=== PATIENT | female | born 1995 | race Caucasian/White ===

== ENCOUNTER 2019-05-04 09:10 | Emergency (ER) | payer OTHER ==
[~2019-05-04] VITALS: Ht 167.6 cm; Wt 85.7 kg
--- NOTE | ~2019-05-04 | EKG ---
[place], [place] ELECTROCARDIOGRAM REPORT NAME: MURIEL GOMEZ UNIT #: [id number] ROOM: DOCTOR: EPIPHANY DRAFT REPORT BIRTHDATE: [birth year] [facility] Test Date: 2019-05-04 Test Time: 09:15:50 Pat Name: MURIEL GOMEZ Department: Room: Gender: F Instrument And Control Technician: : 1995 Requested By: YUDI BEEBE Order Number: [id number] Reading MD: Jose Guadalupe Rebolledo MD Measurements Intervals [place] Rate: 82 P: 44 ND: 127 QRS: 56 QRSD: 80 T: 29 QT: 372 QTc: 435 Interpretive Statements Sinus rhythm Nonspecific T abnormalities, anterior leads Electronically Signed On 05-05-2019 9:09:03 PDT by Jose Guadalupe Rebolledo MD CM:EKGRPT:ELECTROCARDIOGRAM REPORT YUDI BEEBE EPIPHANY DRAFT REPORT YUDI BEEBE
[2019-05-04 09:26] LABS: BASO % 0.4 % (0.0-1.0); EOS # 0.1 10*3/uL (0.0-0.4); EOS % 1.3 % (1.0-4.0); HEMATOCRIT 41.7 % (37.0-47.0); LYMPH # 2.2 10*3/uL (1.3-4.4); LYMPH % 19.8 % (27.0-41.0); MEAN CELL VOLUME 89.1 fl (81.0-99.0); MEAN CORPUSCULAR HGB 29.9 pg (27.0-31.0); MEAN CORPUSCULAR HGB CONC 33.6 g/dl (33.0-37.0); MEAN PLATELET VOLUME 10.3 fl (9.6-12.3); MONO % 9.2 % (3.0-9.0); NEUT # 7.7 10*3/uL (2.3-7.9); PLATELET COUNT AUTOMATED 242 10*3/uL (130-400); RED BLOOD COUNT 4.68 10*6/uL (4.10-5.10); WHITE BLOOD COUNT 11.1 10*3/uL (4.8-10.8)
[2019-05-04 09:43] LABS: ALBUMIN 3.9 gm/dl (3.1-4.5); ALKALINE PHOSPHATASE 67 U/L (45-117); BUN 10 mg/dl (7-24); CHLORIDE 109 mmol/L (98-107); CREATININE 1.37 mg/dL (0.55-1.02); LIPASE 52 U/L (73-393); POTASSIUM 3.8 mmol/L (3.5-5.1); SGOT/AST 12 IU/L (3-35); SGPT/ALT 24 U/L (12-78); SODIUM 140 mmol/L (136-145); TOTAL PROTEIN 8.1 gm/dL (6.4-8.2)
[2019-05-04 09:47] LABS: TROPONIN I < 0.015 ng/ml (<0.045)
[2019-05-04 10:32] LABS: BILIRUBIN NEGATIVE (NEGATIVE); BLOOD 2+ (NEGATIVE); CLARITY SL CLOUDY (CLEAR); COLOR YELLOW (YELLOW); GLUCOSE NEGATIVE (NEGATIVE); KETONE NEGATIVE (NEGATIVE); LEUKO ESTERASE NEGATIVE (NEGATIVE); NITRITE NEGATIVE (NEGATIVE); UROBILINOGEN 0.2 E.U./dl (0.2-1.0)
[2019-05-04 10:44] LABS: BACTERIA TRACE; WBC 31-40 wbc/hpf (0-5)
[2019-05-04] MEDS ORDERED: ZOFRAN4 MG PO (12:05)
== END 2019-05-04 12:07 | disposition home or self-care (01) ==
LOC: ED 09:10
PROVIDERS: Nurse Practitioner Family
DX: R11.2 Nausea with vomiting, unspecified (principal); R63.0 Anorexia; F12.90 Cannabis use, unspecified, uncomplicated; Z90.49 Acquired absence of other specified parts of digestive tract

== ENCOUNTER 2019-05-27 15:59 | Emergency (ER) | payer OTHER ==
[~2019-05-27] VITALS: Ht 167.6 cm; Wt 86.2 kg
[~2019-05-27 15:59] MED LIST: ZOFRAN4 MG PO
[2019-05-27] MEDS ORDERED: AMOXICILLIN500 M2 PO (17:01)
[2019-05-27] MEDS ORDERED: NAPROSYN500 MG PO (17:01)
== END 2019-05-27 18:05 | disposition home or self-care (01) ==
LOC: ED 15:59
DX: K02.9 Dental caries, unspecified (principal); K13.79 Other lesions of oral mucosa

== ENCOUNTER 2019-06-05 21:40 | Emergency (ER) | payer OTHER ==
[~2019-06-05] VITALS: Ht 167.6 cm; Wt 84.4 kg
[~2019-06-05 21:40] MED LIST changes: +AMOXICILLIN500 M2 PO; +NAPROSYN500 MG PO
[2019-06-05 22:01] LABS: BASO % 0.4 % (0.0-1.0); EOS # 0.2 10*3/uL (0.0-0.4); EOS % 2.5 % (1.0-4.0); HEMATOCRIT 37.8 % (37.0-47.0); HEMOGLOBIN 12.5 g/dl (12.0-16.0); LYMPH # 3.9 10*3/uL (1.3-4.4); MEAN CORPUSCULAR HGB 29.8 pg (27.0-31.0); MEAN CORPUSCULAR HGB CONC 33.1 g/dl (33.0-37.0); MEAN PLATELET VOLUME 10.2 fl (9.6-12.3); MONO # 0.5 10*3/uL (0.1-1.0); MONO % 6.8 % (3.0-9.0); NEUT % 39.2 % (47.0-73.0); PLATELET COUNT AUTOMATED 227 10*3/uL (130-400); RED CELL DISTRI WIDTH 14.4 % (0-14.5); WHITE BLOOD COUNT 7.6 10*3/uL (4.8-10.8)
[2019-06-05 22:15] LABS: ALBUMIN 3.5 gm/dl (3.1-4.5); ALKALINE PHOSPHATASE 61 U/L (45-117); BUN 7 mg/dl (7-24); CHLORIDE 109 mmol/L (98-107); CREATININE 0.74 mg/dL (0.55-1.02); LIPASE 85 U/L (73-393); POTASSIUM 3.4 mmol/L (3.5-5.1); SGOT/AST 13 IU/L (3-35); SGPT/ALT 26 U/L (12-78); SODIUM 142 mmol/L (136-145); TOTAL PROTEIN 6.9 gm/dL (6.4-8.2)
[2019-06-05 23:53] LABS: BILIRUBIN NEGATIVE (NEGATIVE); BLOOD NEGATIVE (NEGATIVE); CLARITY SL CLOUDY (CLEAR); COLOR YELLOW (YELLOW); GLUCOSE NEGATIVE (NEGATIVE); KETONE NEGATIVE (NEGATIVE); LEUKO ESTERASE NEGATIVE (NEGATIVE); NITRITE NEGATIVE (NEGATIVE); UROBILINOGEN 0.2 E.U./dl (0.2-1.0)
[2019-06-06 00:10] LABS: BACTERIA TRACE; EPITHELIAL CELLS 45-50; RBC 0-2 rbc/hpf (0-2)
== END 2019-06-06 01:55 | disposition home or self-care (01) ==
LOC: ED 21:40
PROVIDERS: Nurse Practitioner Family
DX: K64.8 Other hemorrhoids (principal); R10.32 Left lower quadrant pain; F17.200 Nicotine dependence, unspecified, uncomplicated